=== PATIENT | female | born 1980 | race Caucasian/White ===

== ENCOUNTER 2017-12-17 10:24 | Emergency (ER) | payer BC, MEDICAID | END 2017-12-17 11:26 | disposition home or self-care (01) | LOC: E/R 11:26 → FTE 10:24 | DX: J02.9 Acute pharyngitis, unspecified (principal); I10 Essential (primary) hypertension; E11.9 Type 2 diabetes mellitus without complications | CPT/HCPCS: 99283 ==

== ENCOUNTER 2018-01-27 19:57 | Emergency (ER) | payer BC | END 2018-01-27 23:41 | disposition home or self-care (01) | LOC: E/R 19:57 | DX: J01.10 Acute frontal sinusitis, unspecified (principal); I10 Essential (primary) hypertension; E11.9 Type 2 diabetes mellitus without complications; F17.210 Nicotine dependence, cigarettes, uncomplicated | CPT/HCPCS: 99283 ==